=== PATIENT | female | born 1980 | race Caucasian/White ===

== ENCOUNTER → 2018-07-15 21:14 | Outpatient (CLI) | payer OTHER, SELFPAY ==
[2018-07-15 15:48] VITALS: BMI 23.6
[2018-07-15 22:00] LABS: Free T3 2.6 pg/mL (2.18-3.98); T4 Free Direct 1.07 ng/dL (0.76-1.46); Thyroid Stim Hormone (TSH) 1.95 uIU/mL (0.358-3.74)
== END ==
PROVIDERS: Family Provider Nurse Practitioner; PCP Nurse Practitioner; Referring Provider Nurse Practitioner; Visit Provider Nurse Practitioner
DX: E03.9 Hypothyroidism, unspecified (principal)
CPT/HCPCS: 84439; 84443; 84481

== ENCOUNTER → 2019-11-13 21:33 | Outpatient (CLI) | payer OTHER, SELFPAY ==
[2019-11-13 17:02] VITALS: BMI 23.1
[2019-11-13 22:05] LABS: ALB/GLOB Ratio 1.1 RATIO (0.9-2.4); AST(SGOT) 12 U/L (15-37); Alanine Aminotransfer ALT/SGPT 25 U/L (13-56); Albumin, Serum 4.2 g/dL (3.2-5.0); Alkaline Phosphatase 54 U/L (45-117); Anion Gap 8 (5-15); BUN 9 mg/dL (7-18); BUN/Creat Ratio 13.2 RATIO (10-20); Calcium,Total 9.3 mg/dL (8.5-10.1); Chloride 108 mmol/L (98-107); Creatinine, Serum 0.68 mg/dL (0.55-1.02); EST Glomerular Filtration Rate 102 mL/min (>60); Est Glom Filt Rate - Afr Amer 123 mL/min (>60); Globulin 3.7 g/dL (2.2-4.2); Glucose 86 mg/dL (74-106); Potassium 3.8 mmol/L (3.5-5.1); Protein, Total 7.9 g/dL (6.4-8.2); Sodium Level 140 mmol/L (136-145); Thyroid Stim Hormone (TSH) 2.26 uIU/mL (0.358-3.74)
== END ==
PROVIDERS: PCP Nurse Practitioner; Referring Provider Nurse Practitioner; Visit Provider Nurse Practitioner
DX: E03.9 Hypothyroidism, unspecified (principal)
CPT/HCPCS: 80053; 84443

== ENCOUNTER → 2020-10-01 22:55 | Outpatient (CLI) | payer OTHER, SELFPAY ==
[2020-10-01 17:00] VITALS: BMI 22.8
[2020-10-01 22:58] LABS: Lyme Ab Screen Interpretation REF LAB
[2020-10-01 23:20] LABS: Absolute Lymphocyte Count 1.88 X10^3/uL (0.83-4.51); Absolute Neutrophil Count 2.8 X10^3/uL (2.0-7.7); Basophil# 0.05 X10^3/uL; Eosinophil# 0.05 X10^3/uL; Hematocrit 40.7 % (37-47); Hemoglobin 13.1 g/dL (12.0-15.0); Lymphocyte # 1.88 X10^3/ul (0.83-4.51); Lymphocyte % 36.2 % (19-41); Mean Corp Hgb Conc 32.2 g/dL (32-36); Mean Corpuscular Volume 90.2 fL (81-99); Mean Platelet Vol. 12.9 fl (6.2-12.0); Monocyte# 0.38 X10^3/uL; Monocyte% 7.3 % (0-10); NRBC Flagged by Analyzer 0 % (0-5); Neutrophil # 2.82 X10^3/uL (2.7-7.7); Neutrophil % 54.3 % (47-70); Platelet Count 272 K/mm3 (150-450); RBC Distribution Width CV 12.5 % (11.6-14.6); RBC Distribution Width SD 41.1 fl (35.1-43.9); Red Blood Count 4.51 M/mm3 (4.2-5.4); White Blood Count 5.2 K/mm3 (4.4-11.0)
[2020-10-01 23:31] LABS: T4 Free Direct 0.98 ng/dL (0.76-1.46); Thyroid Stim Hormone (TSH) 1.91 uIU/mL (0.358-3.74)
[2020-10-04 09:06] LABS: EBV Acute VCA IgM < 36.0 U/mL (0.0-35.9); EBV-VCA IgG > 600.0 U/mL (0.0-17.9); Lyme Scn Total Ab w/Rflx <0.91 ISR (0.00-0.90); Thyroid Peroxidase AB < 9 IU/mL (0-34)
== END ==
PROVIDERS: Visit Provider Nurse Practitioner
DX: E03.9 Hypothyroidism, unspecified (principal); R53.83 Other fatigue; W57.XXXA Bitten or stung by nonvenomous insect and other nonvenomous arthropods, initial encounter
CPT/HCPCS: 84439; 84443; 85025; 86376; 86618; 86664; 86665

== ENCOUNTER → 2021-09-24 | Outpatient (CLI) | payer OTHER, SELFPAY ==
[2021-09-24 21:26] LABS: Absolute Neutrophil Count 3.4 X10^3/uL (2.0-7.7); Basophil# 0.04 X10^3/uL; Basophil% 0.7 % (0-1); Eosinophil# 0.02 X10^3/uL; Eosinophils% 0.3 % (0-5); Hematocrit 38.1 % (37-47); Hemoglobin 12.7 g/dL (12.0-15.0); Lymphocyte % 35.9 % (19-41); Mean Corp Hgb Conc 33.3 g/dL (32-36); Mean Corpuscular Hgb 30.1 pg (27.0-32.0); Mean Corpuscular Volume 90.3 fL (81-99); Mean Platelet Vol. 12.3 fl (6.2-12.0); Monocyte# 0.42 X10^3/uL; Monocyte% 6.9 % (0-10); NRBC Flagged by Analyzer 0 % (0-5); Neutrophil # 3.44 X10^3/uL (2.7-7.7); Platelet Count 275 K/mm3 (150-450); RBC Distribution Width CV 12.4 % (11.6-14.6); Red Blood Count 4.22 M/mm3 (4.2-5.4); White Blood Count 6.1 K/mm3 (4.4-11.0)
[2021-09-24 21:51] LABS: ALB/GLOB Ratio 1.1 RATIO (0.9-2.4); AST(SGOT) 16 U/L (15-37); Alanine Aminotransfer ALT/SGPT 27 U/L (13-56); Albumin, Serum 3.7 g/dL (3.2-5.0); Alkaline Phosphatase 45 U/L (45-117); Anion Gap 5 (5-15); BUN 13 mg/dL (7-18); BUN/Creat Ratio 17.7 RATIO (10-20); Calcium,Total 8.7 mg/dL (8.5-10.1); Chloride 107 mmol/L (98-107); Cholesterol 174 mg/dL (200); Creatinine, Serum 0.74 mg/dL (0.55-1.02); EST Glomerular Filtration Rate 93 mL/min (>60); Est Glom Filt Rate - Afr Amer 112 mL/min (>60); Globulin 3.4 g/dL (2.2-4.2); Glucose 97 mg/dL (74-106); High Density Lipoprotein 89 mg/dL; Potassium 3.4 mmol/L (3.5-5.1); Protein, Total 7.1 g/dL (6.4-8.2); Sodium Level 139 mmol/L (136-145); Thyroid Stim Hormone (TSH) 1.59 uIU/mL (0.358-3.74); Triglycerides 63 mg/dL; Very Low Density Lipoprotein 13 mg/dL (5-40)
[2021-09-29 15:41] LABS: HPV Reflexed? NOT INDICATED
== END | disposition home or self-care (01) ==
PROVIDERS: Referring Provider Nurse Practitioner; Visit Provider Nurse Practitioner
DX: Z01.419 Encounter for gynecological examination (general) (routine) without abnormal findings (principal)
CPT/HCPCS: 80053; 80061; 84443; 85025; 88175; G0145

== ENCOUNTER → 2021-12-24 | Outpatient (CLI) | payer OTHER, SELFPAY ==
[2021-12-24 21:20] LABS: Lyme Ab Screen Interpretation REF LAB
[2021-12-24 21:45] LABS: Thyroid Stim Hormone (TSH) 1.29 uIU/mL (0.358-3.74)
[2021-12-26 16:09] LABS: Anti-Centromere B Ab <0.2 AI (0.0-0.9); Anti-Chromatin <0.2 AI (0.0-0.9); Anti-Jo <0.2 AI (0.0-0.9); Anti-Scleroderma-70 AB 0.2 AI (0.0-0.9); RNP Ab 0.3 AI (0.0-0.9); SJOGREN'S Anti-SS-A test < 0.2 AI (0.0-0.9); SJOGREN'S Anti-SS-B test < 0.2 AI (0.0-0.9); Smith Ab 0.2 AI (0.0-0.9)
[2021-12-26 20:42] LABS: Anti-dsDNA Ab 4 IU/mL (0-9)
== END | disposition home or self-care (01) ==
PROVIDERS: Visit Provider Nurse Practitioner
DX: R21 Rash and other nonspecific skin eruption (principal); M25.50 Pain in unspecified joint; L21.0 Seborrhea capitis
CPT/HCPCS: 84443; 86225; 86235; 86618; 86664; 86665; 87496

== ENCOUNTER → 2023-01-18 | Outpatient (CLI) | payer BC, SELFPAY ==
[2023-01-18 21:39] LABS: Thyroid Stim Hormone (TSH) 0.63 uIU/mL (0.358-3.74)
== END | disposition home or self-care (01) ==
PROVIDERS: Visit Provider Nurse Practitioner
DX: E03.9 Hypothyroidism, unspecified (principal)
CPT/HCPCS: 84443

== ENCOUNTER → 2023-01-21 | Outpatient (CLI) | payer BC, SELFPAY ==
[2023-01-26 22:11] LABS: HPV Reflexed? NOT INDICATED
== END | disposition home or self-care (01) ==
PROVIDERS: Visit Provider Nurse Practitioner
DX: Z01.419 Encounter for gynecological examination (general) (routine) without abnormal findings (principal); H66.92 Otitis media, unspecified, left ear
CPT/HCPCS: 88175; G0145

== ENCOUNTER → 2024-02-18 | Outpatient (CLI) | payer BC, SELFPAY | END | disposition home or self-care (01) | LOC: LABSPEC 19:41 | PROVIDERS: PCP Nurse Practitioner; Visit Provider Nurse Practitioner | DX: E03.9 Hypothyroidism, unspecified (principal) | CPT/HCPCS: 84443 ==

== ENCOUNTER → 2024-02-19 | Outpatient (CLI) | payer BC, SELFPAY | END | disposition home or self-care (01) | LOC: LABSPEC 07:17 | PROVIDERS: PCP Nurse Practitioner; Referring Provider Nurse Practitioner; Visit Provider Nurse Practitioner | DX: E03.9 Hypothyroidism, unspecified (principal) ==

== ENCOUNTER → 2025-04-02 | Outpatient (CLI) | payer BC, SELFPAY ==
--- OUTSIDE RECORDS SUMMARY | 2025-04-02 22:02 | XMS RPT_ITS | CCD ---
Author Organization [facility] Care Team Providers Care Tilt Tray Driver Name Role Phone JING HENDERSON Unavailable UnaALEX Trinidad Unavailable Unavailable NO PRIMARY CARE, Unavailable Unavailable Kishor BENSON, Mohinder Soriano Primary Care Provider Justin BENSON, Yaquelin Jacobo Primary Care Provider [phone] Rafael DE IONIZER OPERATOR, Cecy Attending Unavailable Rafael DE IONIZER OPERATOR, Cecy Primary Care Unavailable Rafael DE IONIZER OPERATOR, Cecy Attending Unavailable Rafael DE IONIZER OPERATOR, Cecy Referring Unavailable Rafael DE IONIZER OPERATOR, Cecy Primary Care Unavailable MOHINDER IVERSON Primary Care Unavailable Allergies Allergy Classification Reported Allergen(s) Allergy Type Date of Onset Reaction(s) Facility (4 sources) Acetaminophen / HYDROcodone Drug Allergy 3 Other (See Comments), Other: See Comments [facility] (1 source) Ciprofloxacin Drug Allergy 7 Other (See Comments) [facility] Work Phone: (1 source) Fluconazole Drug Allergy 9 [facility] Work Phone: (1 source) levoFLOXacin Drug Allergy 6 Other (See Comments) [facility] Work Phone: (7 sources) telithromycin Drug Allergy 3 Hives [facility] (4 sources) Amoxicillin-Pot Clavulanate Propensity to adverse reactions to drug 6 Anaphylaxis, Other: See Comments [facility] (3 sources) Clindamycin Drug Allergy 3 GI Upset [facility] (3 sources) NITROFURANTOIN, MACROCRYSTALS / Nitrofurantoin, Monohydrate Drug Allergy 7 GI Upset [facility] (3 sources) Acetaminophen Drug Allergy 8 [facility] (3 sources) Amoxicillin Drug Allergy 8 throat closes [facility] (3 sources) Clavulanate Drug Allergy 8 throat closes [facility] (3 sources) HYDROcodone Drug Allergy 8 u [facility] (1 source) Acetaminophen Drug Allergy 8 [facility] (1 source) Amoxicillin Drug Allergy 8 [facility] (1 source) Clavulanate Drug Allergy 8 [facility] (1 source) HYDROcodone Drug Allergy 8 [facility] (1 source) telithromycin Drug Allergy 8 [facility] Medications Current Medications Medication Drug Class(es) Dates Sig (Normalized) Sig (Original) acetaminophen 325 mg oral tablet (1 source) acetaminophen (TYLENOL) 325 MG tablet Take 650 mg by mouth as needed for Pain 0 Active [id number] 200 actuat albuterol 0.09 mg/actuat metered dose inhaler (3 sources) beta2-Adrenergic Agonist Start: 12-19-2020 take 1 puff(s) by inhalation every four hours Albuterol Sulfate (Ventolin Hfa) 90 mcg/actuation HFA aerosol inhaler Active 2 PUFF INHALATION Q4H 6.7 December 19, 2020 12:00am calcipotriene (2 sources) Vitamin D Analog Start: 01-21-2023 Calcipotriene Active 1 APPLIC TOPICAL DAILY 60 56 January 21, 2023 12:00am rub in gently and completely cetirizine hydrochloride 10 mg oral tablet (6 sources) Histamine-1 Receptor Antagonist Start: 11-13-2019 take 1 tablet by mouth once daily Cetirizine (Zyrtec) 10 mg tablet Active 10 MG PO DAILY November 13, 2019 12:00am take 5 mg by mouth once daily Ce tirizine (ZYRTEC) 10 mg cap Take 5 mg by mouth once daily. 0 Active Comment on above: Take 5 mg by mouth o nce daily. cholecalciferol 0.025 mg oral capsule (7 sources) Vitamin D Start: 8 take 1000 [IU] by mouth once daily Cholecalciferol (Vitamin D3) Active 1000 UNIT PO DAILY December 09, 2017 12:00am take 1 tablet by mouth once sena y Cholecalciferol, Vitamin D3, (VITAMIN D) 1,000 unit Tab Take 1,000 Units by mouth once daily. 0 Active Comment on above: Take 1,000 Units by mouth once daily. [id number] 0.3 ml EPINEPHrine 1 mg/ml auto-injector (1 source) alpha-Adrenergic Agonist, beta-Adrenergic Agonist, Catecholamine Start: 12-08-19 19 EPINEPHrine (EPIPEN) 0.3 MG/0.3ML SOAJ injection Use as directed for allergic reaction 2 each 4 12/07/2018 Active Multiple Vitamin (MULTI-DAY VITAMINS PO) (1 source) take 1 tablet by mouth once daily Multiple Vitamin (MULTI-DAY VITAMINS PO) Take 1 tablet by mouth daily 0 Active Multivitamin (Multiple Vitamins) tablet (3 sources) Start: 04-27-19 20 take 1 tablet by mouth once daily Multivitamin (Multiple Vitamins) tablet Active 1 TABLET PO DAILY 2019 1:00am omega-3 acid ethyl esters (care home) 1000 mg oral capsule (1 source) [place] 3 1000 MG CAPS Indications: when she remembers Take by mouth Indications: when she remembers 0 Active omeprazole 20 mg delayed release oral capsule (1 source) Proton Pump Inhibitor Start: 12-08-19 19 take 1 capsule by mouth once daily omeprazole (PRILOSEC) 20 MG delayed release capsule Take 1 capsule by mouth Daily 90 capsule 4 12/07/2018 Active sucralfate 1000 mg oral tablet (15 sources) Aluminum Complex Start: 04-17-19 22 take 1 tablet by mouth once daily Sucralfate (Carafate) 1 gram tablet Active 1 GM PO daily April 17, 2021 9:29pm Start: 11-13-2019 End: 04-17-2021 take 1 tablet by mouth twice daily Sucralfate (Carafate) 1 gram tablet Discontinued 1 GM PO TWICE A DAY November 13, 2019 12:00am April 17, 2021 9:32pm Start: 12-09-2017 End: 10-15-2018 take 1 tablet by mouth once Sucralfate (Carafate) 1 gr am tablet Discontinued 1 GM PO ONCE April 28, 2018 8:32pm October 15, 2018 12:18pm take 1 tablet by caden four times daily sucralfate (CARAFATE) 1 gram tablet Take 1 g by mouth four times daily. 0 Active Comment on above: Take 1 g by mouth fo ur times daily. Completed/Discontinued Medications Medication Drug Class(es) Dates Sig (Normalized) Sig (Original) azithromycin 250 mg oral tablet (16 sources) Macrolide Antimicrobial Start: 07-21-2022 End: 07-26-2022 Azithromycin Discontinued 250 MG PO daily 6 July 21, 2022 4:57pm July 26, 2022 12:04am 2 po qd for 1 day then 1 po qd for 4 days with food or after eating Start: 03-04-2022 End: 03-09-2022 Azithromycin Discontinued 25 0 MG PO daily 6 March 04, 2022 1:00am March 09, 2022 1:03am 2 po qd for 1 day then 1 po qd for 4 days with food or after eating Start: 08-27-2021 End: 09-01-2021 Azithromycin Discontinued 25 0 MG PO daily 6 August 27, 2021 4:06pm September 01, 2021 12:03am 2 po qd for 1 day then 1 po qd for 4 days with food or after eating Start: 04-17-2021 End: 04-22-2021 Azithromycin Discontinued 25 0 MG PO daily 6 April 17, 2021 1:00am April 22, 2021 1:01am 2 po qd for 1 day then 1 po qd for 4 days with food or after eating Start: 05-01-2019 End: 05-06-2019 Azithromycin Discontinued 25 0 MG PO daily 6 May 01, 2019 1:00am May 06, 2019 1:09am 2 po qd for 1 day then 1 po qd for 4 days with food or after eating Start: 03-10-2019 End: 03-15-2019 Azithromycin Discontinued 25 0 MG PO daily 6 March 10, 2019 1:00am March 15, 2019 1:07am 2 po qd for 1 day then 1 po qd for 4 days with food or after eating cefdinir 300 mg oral capsule (3 sources) Cephalosporin Antibacterial Start: 12-19-2020 End: 04-17-2021 take 300 mg by mouth twice daily Cefdinir Discontinued 300 MG PO TWICE A DAY December 19, 2020 12:00am April 17, 2021 9:25pm cefuroxime 500 mg oral tablet (11 sources) Cephalosporin Antibacterial Start: 09-11-2022 End: 01-22-2023 take 500 mg by mouth twice daily Cefuroxime Axetil Discontinued 500 MG PO TWICE A DAY September 11, 2022 4:51pm January 22, 2023 12:32pm Start: 09-09-2020 End: 10-01-2020 take 500 mg by mouth twice daily Cefuroxime Axetil Discontinued 500 MG PO TWICE A DAY September 09, 2020 4:35pm October 01, 2020 5:01pm Start: 01-31-2019 End: 2019 take 500 mg by mouth twice daily Cefuroxime Axetil Discontinued 500 MG PO TWICE A DAY March 27, 2019 7:10pm 2019 4:34pm cephalexin 500 mg oral capsule (10 sources) Cephalosporin Antibacterial Start: 12-09-2018 End: 12-19-2018 take 500 mg by mouth twice daily Cephalexin Discontinued 500 MG PO TWICE A DAY 22 01December 09, 2018 12:00am December 19, 2018 12:08am Start: 10-15-2018 cephALEXin (KE FLEX) 500 MG capsule Indications: Once a day PRN Indications: Once a day PRN 0 10/15/2018 Active Start: 07-15-2018 End: 07-25-2018 take 500 mg by mouth twice daily Cephalexin Discontinued 500 MG PO TWICE A DAY 22 01July 15, 2018 12:00am July 25, 2018 12:09am Start: 04-07-2018 End: 04-17-2018 take 500 mg by mouth twice daily Cephalexin Discontinued 500 MG PO TWICE A DAY 22 01April 07, 2018 1:00am April 17, 2018 1:08am clarithromycin 500 mg oral tablet (3 sources) Macrolide Antimicrobial Start: 2019 End: 11-13-2019 take 500 mg by mouth twice daily Clarithromycin Discontinued 500 MG PO TWICE A DAY 2019 1:00am November 13, 2019 5:03pm codeine phosphate 2 mg/ml / guaiFENesin 20 mg/ml oral solution (2 sources) Opioid Agonist Start: 03-04-2022 End: 01-22-2023 take 1 mL by mouth once Codeine-Guaifenesin Discontinued 5 ML PO ONCE March 04, 2022 1:00am January 22, 2023 12:33pm doxycycline hyclate 100 mg oral tablet (5 sources) Tetracycline-class Drug Start: 12-29-2021 End: 03-04-2022 take 100 mg by mouth twice daily Doxycycline Hyclate Discontinued 100 MG PO TWICE A DAY 60 December 29, 2021 12:00am March 04, 2022 7:35pm Start: 10-01-2020 End: 04-17-2021 take 100 mg by mouth twice daily Doxycycline Hyclate Discontinued 100 MG PO TWICE A DAY 42 October 01, 2020 12:00am April 17, 2021 9:26pm fluconazole 150 mg oral tablet (3 sources) Azole Antifungal Start: 04-07-2018 End: 04-08-2018 Fluconazole Discontinued 150 MG PO Q3D 2 0 April 07, 2018 1:00am April 08, 2018 1:09am august repeat second dose 72 hrs after first dose if symptoms persist ibuprofen 600 mg oral tablet (6 sources) Nonsteroidal Anti-inflammatory Drug Start: 06-19-2016 take 1 tablet by mouth every six hours as needed ibuprofen (MOTRIN) 600 mg tablet Take 1 tablet by mouth every 6 hours as needed. 60 tablet 0 06/19/2016 Active Ibuprofen (MOTRI N IB) 200 mg cap Take by mouth. 0 Active Comment on above: Take 1 tablet by caden th every 6 hours as needed. Take by mouth. levothyroxine sodium 0.088 mg oral tablet (20 sources) l-Thyroxine Start: End: 3 take 1 tablet by mouth once daily Levothyroxine (Synthroid) 88 mcg tablet Discontinued 88 MCG PO DAILY January 02, 2022 12:28pm January 19, 2023 11:18am take 1 tablet by caden th once daily before breakfast levothyroxine (SYNTHROID) 75 mcg tablet Take 75 mcg by mouth daily before breakfast. 0 Active Comment on above: Take 75 mcg by mouth daily before breakfast. ofloxacin 3 mg/ml otic solution (12 sources) Quinolone Antimicrobial Start: 10-31-2020 End: 01-22-2023 Ofloxacin Discontinued 10 DRP OTIC TWICE A DAY August 27, 2021 4:05pm January 22, 2023 12:33pm Start: 01-31-2019 End: 03-31-2019 Ofloxacin Discontinued 0 OPH THALMIC .COMPLEX January 31, 2019 12:00am March 31, 2019 1:00pm put 1-2 drps into affected eye(s) every 2-4 h x 2 days, then 1-2 drps 4 times/day days 3-7 ophthalmic (eye) Start: 10-15-2018 End: 03-31-[address] P OTIC TWICE A DAY October 15, 2018 12:00am March 31, 2019 1:00pm PNV COMBO#47/IRON/FA #1/DHA (PNV-DHA ORAL) (3 sources) PNV COMBO#47/IRO N/FA #1/DHA (PNV-DHA ORAL) Take by mouth. 0 Active Comment on above: Take by mouth. predniSONE 10 mg oral tablet (14 sources) Start: 12-19-2021 End: 12-23-2021 Prednisone Discontinued 20 MG PO TWICE A DAY 30 December 19, 2021 12:00am December 23, 2021 12:03am 2 po bid 4D,1 po bid for 4 D, 1 po qd for 4 D 1/2 po qd for 2 days Start: 10-01-2020 End: 04-17-2021 take 40 mg by mouth once daily Prednisone Discontinued 40 MG PO DAILY December 19, 2020 12:00am April 17, 2021 9:26pm Start: 12-09-2018 End: 12-19-2018 take 40 mg by mouth once daily Prednisone Discontinued 40 MG PO DAILY 20 December 09, 2018 12:00am December 19, 2018 12:08am Start: 10-15-2018 End: 10-22-2018 take 20 mg by mouth twice daily Prednisone Discontinued 20 MG PO TWICE A DAY 28 October 15, 2018 12:00am October 22, 2018 12:08am Prenat.Vits,Elmer,Yse-Phol-Vom ic ( Vitamin) tablet (3 sources) Start: 12-09-2017 End: 10-15-2018 take 1 tablet by mouth once daily Prenat.Vits,Elmer,Juk-Reai-Iyhct ( Vitamin) tablet Discontinued 1 TABLET PO DAILY December 09, 2017 12:00am October 15, 2018 12:19pm Problems Active Problems Problem Classification Problem Date Documented Date Episodic/Chronic Anxiety disorders (1 source) Anxiety 09-16-2015 Chronic Asthma (1 source) Asthma 11-11-2016 Chronic Chronic obstructive pulmonary disease and bronchiectasis (5 sources) Bronchitis; Translations: [Bronchitis, not specified as acute or chronic] 2019 Episodic Disorders of teeth and jaw (3 sources) Jaw pain; Translations: [Jaw pain] 06-10-2021 Episodic Esophageal disorders (4 sources) Gastroesophageal reflux disease without esophagitis; Translations: [Gastroesophageal reflux disease] Onset: 11-11-2016 11-11-2016 Chronic Genitourinary symptoms and ill-defined conditions (3 sources) Urgent desire to urinate; Translations: [Urgency of urination] 04-07-2018 Episodic Inflammation; infection of eye (except that caused by tuberculosis or sexually transmitteddisease) (3 sources) Eye infection; Translations: [Unspecified purulent endophthalmitis, unspecified eye] 01-31-2019 Chronic Malaise and fatigue (3 sources) Fatigue; Translations: [Other fatigue] 07-15-2018 Episodic Mycoses (3 sources) Mycosis; Translations: [Candidiasis, unspecified] 04-07-2018 Episodic Nonmalignant breast conditions (3 sources) Breast lump; Translations: [Unspecified lump in the right breast, unspecified quadrant] 09-17-2021 Episodic Nutritional deficiencies (1 source) Vitamin D deficiency Onset: 11-11-2016 11-11-2016 Chronic Other complications of (3 sources) Complication of , childbirth and/or the puerperium; Translations: [Other diseases of the blood and blood-forming organs and certain disorders involving the immune mechanism complicating , unspecified trimester] 09-25-2021 Episodic Other ear and sense organ disorders (3 sources) Decreased hearing ; Translations: [Unspecified hearing loss, unspecified ear] 12-09-2017 Chronic Other ear and sense organ disorders (6 sources) Otitis externa; Translations: [Unspecified otitis externa, unspecified ear] 10-15-2018 Chronic Other ear and sense organ disorders (3 sources) Impacted cerumen; Translations: [Impacted cerumen, unspecified ear] 12-09-2017 Episodic Other ear and sense organ disorders (1 source) Otalgia; Translations: [Otalgia, unspecified ear] Episodic Other ear and sense organ disorders (6 sources) Swelling of ear structure; Translations: [Other specified disorders of left ear] 10-15-2018 Episodic Other ear and sense organ disorders (2 sources) Pain of ear structure; Translations: [Otalgia, unspecified ear] 04-24-2021 Episodic Other inflammatory condition of skin (2 sources) Pityriasis; Translations: [Seborrhea capitis] 12-19-2021 Episodic Other inflammatory condition of skin (2 sources) Pruritus of skin; Translations: [Pruritus, unspecified] 12-19-2021 Episodic Other non-traumatic joint disorders (2 sources) Joint pain; Translations: [Pain in unspecified joint] 12-24-2021 Episodic Other screening for suspected conditions (not mental disorders or infectious disease) (3 sources) Patient encounter status; Translations: [Encounter for screening mammogram for malignant neoplasm of breast] 09-15-2021 Episodic Other skin disorders (2 sources) Eruption; Translations: [Rash and other nonspecific skin eruption] 12-24-2021 Episodic Other upper respiratory disease (1 source) Allergic rhinitis due to pollen Onset: 11-11-2016 11-11-2016 Chronic Other upper respiratory infections (6 sources) Ethmoidal sinusitis; Translations: [Chronic ethmoidal sinusitis] 07-15-2018 Chronic Other upper respiratory infections (3 sources) Pharyngitis; Translations: [Acute pharyngitis, unspecified] 04-28-2018 Episodic Otitis media and related conditions (9 sources) Acute left otitis media; Translations: [Otitis media, unspecified, left ear] 07-15-2018 Episodic Skin and subcutaneous tissue infections (3 sources) Cellulitis; Translations: [Cellulitis, unspecified] 12-09-2018 Episodic Thyroid disorders (6 sources) Acquired hypothyroidism; Translations: [Hypothyroidism] Onset: 11-11-2016 Resolved: 11-11-2016 11-11-2016 Chronic Unclassified (1 source) Patient encounter status Past or Other Problems Problem Classification Problem Date Documented Da te Episodic/Chronic Immunizations and screening for infectious disease (1 source) Anti-nuclear factor positive 11-11-2016 Episodic Spontaneous (1 source) Miscarriage Onset: 02-04-2015 Resolved: 11-11-2016 11-11-2016 Episodic Unclassified (2 sources) HSG dye through fallopian tubes 11-03-2021 Results Test Name Value Interpretation Reference Range Facility Thyroid Stim Hormone (TSH)on 02-18-2024 TSH 1.410 uIU/mL Normal 0.358-3.740 [facility] Comment on above: Performed By: #### L [id number] #### [facility] [address] [place], [place], [id number] No Panel InformationOrdered By: Cecy Hall on 01-18-2023 Thyroid Stimulating Hormone (TSH) 0.63 uIU/mL 0.358-3.74 [facility] Absolute lymphocyte counton 09-24-2021 Lymphocytes Auto (Unsp spec) [#/Vol] 2.20 10*3/uL 0.83-4.51 [facility] Work Phone: Basophil percentageon 2021 Basophils/100 WBC (Bld) 0.7 % 0-1 [facility] Work Phone: Bilirubin [Mass/Vol] 0.50 mg/dL 0.20-1.00 [facility] Work Phone: Comment on above: For patients on eltr ombopag therapy, use of Dimension [place] TBIL is not recommended. Chloride [Moles/Vol] 107 mmol/L 98-107 [facility] Work Phone: Cholesterol [Mass/Vol] 174 mg/dL <200 [facility] Work Phone: Comment on above: <200 mg/dL Desirable 200-240 mg/dL Borderline >240 mg/dL High Risk Eosinophils/100 WBC (Bld) 0.3 % 0-5 [facility] Work Phone: Glucose [Mass/Vol] 97 mg/dL 74-106 [facility] Work Phone: Neutrophils (Bld) [#/Vol] 3.4 10*3/uL 2.0-7.7 [facility] Work Phone: Neutrophils/100 WBC (Bld) 56.0 % 47-70 [facility] Work Phone: Potassium [Moles/Vol] 3.4 mmol/L 3.5-5.1 [facility] Work Phone: Protein [Mass/Vol] 7.1 g/dL 6.4-8.2 [facility] Work Phone: [phone] Sodium [Moles/Vol] 139 mmol/L 136-145 [facility] Work Phone: [phone] Triglyceride [Mass/Vol] 63 mg/dL <199 [facility] Work Phone: [phone] Comment on above: The drugs N-Acetylcy steine and Metamizole may falsely depress this assay.Serum Triglycerides Reference Interval Normal <150 mg/dL Borderline high 150 - 199 mg/dL High 200 - 499 mg/dL Very High > or = 500 mg/dL WBC (Bld) [#/Vol] 6.1 10*3/uL 4.4-11.0 [facility] Work Phone: [phone] Blood erythrocytes count (nu mber/volume)on 09-24-2021 RBC (Bld) [#/Vol] 4.22 10*6/uL 4.2-5.[address] [facility] Work Phone: [phone] Blood hemoglobin measurement (mass/volume)on 09-24-2021 Hemoglobin (Bld) [Mass/Vol] 12.7 g/dL 12.0-15.0 [facility] Work Phone: [phone] Blood lymphocytes/100 leukoc yteson 09-24-2021 Lymphocytes/100 WBC (Bld) 35.9 % 19-41 [facility] Work Phone: [phone] Blood monocytes/100 leukocyt eson 09-24-2021 Monocytes/100 WBC (Bld) 6.9 % 0-10 [facility] Work Phone: [phone] Blood platelet mean volumeon 09-24-2021 Platelet mean volume (Bld) [Entitic vol] 12.3 fL 6.2-12.0 [facility] Work Phone: [phone] Determination of erythrocyte mean corpuscular volume (MCV)on 09-24-2021 MCV (RBC) [Entitic vol] 90.3 fL 81-99 [facility] Work Phone: [phone] Hematocrit Auto (Bld) [Volum e fraction]on 09-24-2021 Hematocrit (Bld) [Volume fraction] 38.1 % 37-47 [facility] Work Phone: [phone] Laboratory - Chemistry and C hemistry - challengeon 09-24-2021 ALP [Catalytic activity/Vol] 45 U/L 45-117 [facility] Work Phone: [phone] ALT [Catalytic activity/Vol] 27 U/L 13-56 [facility] Work Phone: [phone] CO2 [Moles/Vol] 27.0 mmol/L 21.0-32.0 [facility] Work Phone: [phone] Globulin (S) [Mass/Vol] 3.4 g/dL 2.2-4.2 [facility] Work Phone: [phone] Urea nitrogen/Creatinine [Mass ratio] 17.7 mg/mg 10-20 [facility] Work Phone: [phone] Laboratory - Hematology and Cell countson 09-24-2021 Erythrocyte distribution width (RBC) [Entitic vol] 41.0 fL 35.1-43.9 [facility] Work Phone: [phone] Erythrocyte distribution width (RBC) [Ratio] 12.4 % 11.6-14.6 [facility] Work Phone: [phone] Immature granulocytes/100 WBC (Bld) 0.200 % 0.0-0.9 [facility] Work Phone: [phone] Comment on above: IG% - Immature Granu locytes (promyelocytes, myelocytes and metamyelocytes) > 1% indicates that a LEFT SHIFT is Present. MCH (RBC) [Entitic mass] 30.1 pg 27.0-32.0 [facility] Work Phone: [phone] Nucleated RBC/100 WBC (Bld) [Ratio] 0 % 0-5 [facility] Work Phone: [phone] MCHC Auto (RBC) [Mass/Vol]on 09-24-2021 MCHC (RBC) [Mass/Vol] 33.3 g/dL 32-36 [facility]: [phone] No Panel Informationon 09-24 Estimated GFR (MDRD) Amer 112 mL/min >60 [facility] Work Phone: Comment on above: GFR Calc Estimated GFR (MDRD) Non-Af Amer 93 mL/min >60 [facility] Work Phone: Comment on above: Non- GFR Calc Thyroid Stimulating Hormone (TSH) 1.59 uIU/mL 0.358-3.74 [facility] Work Phone: Platelets bldon 09-24-2021 Platelets (Bld) [#/Vol] 275 10*3/uL 150-450 [facility] Work Phone: Serum or plasma albumin erasmo urement (mass/volume)on 09-24-2021 Albumin [Mass/Vol] 3.7 g/dL 3.2-5.0 [facility] Work Phone: Serum or plasma albumin/glob ulin mass ratioon 09-24-2021 Albumin/Globulin [Mass ratio] 1.1 {ratio} 0.9-2.4 [facility] Work Phone: Serum or plasma calcium erasmo urement (mass/volume)on 09-24-2021 Calcium [Mass/Vol] 8.7 mg/dL 8.5-10.1 [facility] Work Phone: Serum or plasma cholesterol in HDL measurement (mass/volume)on 09-24-2021 Cholesterol in HDL [Mass/Vol] 89 mg/dL >40 [facility] Work Phone: Comment on above: The drugs N-Acetylcy steine and Metamizole may falsely depress this assay. Reference Range HDL <40 mg/dL Low HDL Cholesterol HDL >or= 60 mg/dL High HDL Cholesterol Serum or plasma cholesterol in VLDL measurement (mass/volume)on 09-24-2021 Cholesterol in VLDL [Mass/Vol] 13 mg/dL 5-40 [facility] Work Phone: Serum or plasma creatinine m easurement (mass/volume)on 09-24-2021 Creatinine [Mass/Vol] 0.74 mg/dL 0.55-1.02 [facility] Work Phone: Comment on above: The validity of the calculated GFR & GFRAA in patients over 70 years has not been determined. Clinical correlation is essential. Serum or plasma low density lipoprotein (LDL) cholesterol measurement (mass/volume)on 09-24-2021 Cholesterol in LDL [Mass/Vol] 72 mg/dL 0-130 [facility] Work Phone: Serum or plasma urea nitroge n measurement (mass/volume)on 09-24-2021 Urea nitrogen [Mass/Vol] 13 mg/dL 7-18 [facility] Work Phone: Thin prep Papanicolaou smear with manual screeningon 09-24-2021 Thin prep Papanicolaou smear with manual screening 16 U/L 15-37 [facility] Work Phone: Thin prep Papanicolaou smear with manual screening 5 5-15 [facility] Work Phone: [facility] 09-22-2021 [facility] HNO ID: [id number] Author: Mammography Coordinator Service: ? Author Type: Physician Type: Letter Filed: 09/23/2021 11:31 PM Note Text: [address] [address] September 22, 2021 PID: [id number] Inessa Hurd [address] [place] [address] Dear Ms. Hurd, Your prior imaging studies have arrived and been compared to your current study. We are pleased to inform you that the results of your recent breast imaging exam on 09/17/2021 are normal. Early detection of cancer is very important. We also understand recommendations regarding breast cancer screening are controversial. Please discuss with your primary care provider which strategy is best for you and whether a mammogram is right for you. Your imaging studies and report will be kept on file at [facility] as part of your permanent medical record and are available for your continuing care. Thank you for allowing us to help in meeting your health care needs. Sincerely, Dr. Mckenzie Interpreting Radiologist [facility] (Normal [place] compared) Normal [facility] 09-17-2021 [facility] HNO ID: [id number] Author: Mammography Coordinator Service: ? Author Type: Physician Type: Letter Filed: 09/18/2021 11:33 PM Note Text: [facility] [address] [place] [address] September 17, 2021 PID: [id number] Inessa Hurd [address] [place] [id number] Dear Ms. Hurd, Your breast imaging exam 09/17/2021 showed a possible finding that may require additional imaging studies for a complete evaluation. However, we recognize you have prior imaging studies at facilities other than [facility], and would like the opportunity to compare your recent imaging with those studies to evaluate for any change. At this time, we have requested your prior studies. If/when your prior studies arrive, a final report will be sent to your healthcare provider and/or you. In addition, you will receive a new result letter and or phone call If you need additional imaging. If we do not receive prior studies within 30 days of your exam, you will receive a reminder letter and or phone call to schedule your diagnostic imaging. Your imaging studies and reports are kept on file at [facility] as part of your permanent medical record, and are available for your continuing care. If you have any questions or concerns, please call [phone]. Thank you for choosing [facility] for your imaging needs. Sincerely, Dr. Mckenzie Interpreting Radiologist [facility] ([employer]) Normal [facility] SCREENINGon 09-17-2021 [facility] SCREENING * * *Final Report* * * * * * SEE BOTTOM OF REPORT FOR ADDENDED TEXT * * * DATE OF EXAM: Sep 17 2021 11:08AM [facility] [id number] - [facility] SCREENING / PROCEDURE REASON: screening * * * * Physician Interpretation * * * * THIS REPORT HAS BEEN AMENDED. #[id number] - [facility] SCREENING BILATERAL DIGITAL SCREENING MAMMOGRAM WITH CAD: 09/17/2021 HISTORY: / Screening Mammogram-Patient reports NO symptoms. RESULT: TECHNIQUE: The study was acquired using full field digital technology and interpreted from soft copy. Current study was also evaluated with a Computer Aided Detection (CAD). No prior exams were available for comparison. The tissue of both breasts is heterogeneously dense. This may lower the sensitivity of mammography. There is a possible asymmetry in the right breast posterior depth upper region seen on the mediolateral oblique view only. There also is a possible asymmetry in the right breast middle depth outer region seen on the craniocaudal view only. No other significant masses, calcifications, or other findings are seen in either breast. IMPRESSION: INCOMPLETE: NEEDS ADDITIONAL IMAGING EVALUATION The possible asymmetry in the right breast posterior depth upper region seen on the mediolateral oblique view only is indeterminate. Additional views and a comparison to prior exams are recommended. The possible asymmetry in the right breast middle depth outer region seen on the craniocaudal view only is indeterminate. Additional views and a comparison to prior exams are recommended. SUMMARY: If the patient's prior breast imaging studies are obtained for comparison, an addendum will be made to the above report with updated BIRADS. Lucho loredo/ashley:09/17/2021 11:17:42 [employer] Contemporary Art Curator(s): Sharlene Schaefer (Amador)(M), [facility] letter sent: Comparison Films Needed Mammogram BI-RADS: 0 Incomplete: needs additional imaging evaluation If this report indicates you need additional imaging, and it has NOT yet been performed, please call , to schedule. We sincerely thank you for choosing the [facility] for your breast imaging needs. Multiple national specialty organizations have released breast cancer screening guidelines for women at average risk for developing breast cancer - guidelines that are based on both evidence and opinion, yet differ on when to start and how often to screen for breast cancer. With representation from Breast Imaging, Internal Medicine, Women's Health, Family Medicine, and Medical/Surgical Oncology, the [facility] has carefully reviewed the data and reached the following consensus: 1) All women should engage in shared decision-making with their providers to decide when to start and how often to screen; 2) All women should have the opportunity to start screening mammography at age 40; 3) For women ages 45-55, we recommend annual screening mammograms; 4) For women ages 55 and over, we support both the transition from an annual to a biennial interval if this aligns more with patient's values and preferences, or continuation with annual screening; 5) All women should discuss with their providers when to stop screening mammograms. AMENDMENT: 09/22/2021 Lucho Mckenzie M.D. Previous mammogram dated 03/31/2019 is now available for comparison. There has been no significant interval change in appearance of either breast. Routine annual screening is recommended. Amended BI-RADS: 1 Negative letter sent: Normal - Films Compared Buffer Copper: Ashley Transcribe Date/Time: Sep 17 2021 10:43A Dictated by : LUCHO MCKENZIE MD This examination was interpreted and the report reviewed and electronically signed by: LUCHO MCKENZIE MD on Sep 17 2021 11:17AM EST This document has been addended by: LUCHO MCKENZIE MD on Sep 22 2021 9:12AM EST [id number] CN [facility] 08-04-2021 CNPN Telephone (CORPMN) INESSA HURD ([id number]) 1980 [facility] Date Time Provider Department 08/04/21 NIXON SHAIKH During your visit today, we recorded the following information about you: Nixon Shaikh RN 08/04/2021 9:37 PM Signed Exposure to COVID patient on 08/03/2021 CG masked/no eye wear, patient no mask. CG with patient for more than 15 min and less than [address] No s/s, will call back, if needed. Allergies As of Date: 08/04/2021 Noted Allergy Reaction AUGMENTIN (AMOXICILLIN-POT CLAVUL*06/11/2016 14 - Other: See Comments Comments: Throat swelling CLINDAMYCIN 08/16/2012 8 - GI Upset Comments: extreme KETEK (TELITHROMYCIN) 08/16/2012 4 - Hives MACROBID (NITROFURANTOIN MONOHYD/*06/11/2016 8 - GI Upset Comments: Flu like symptoms VICODIN (HYDROCODONE-ACETAMI NOPHE*08/16/2012 14 - Other: See Comments Comments: Causes weird thoughts Date Reviewed: 10/31/2019 Reviewed by: Chantal Rick Ma - Fully Assessed Reason for Visit: [facility] COVID Outreach [[id number]] Prescriptions as of 08/04/2021 - Ibuprofen (MOTRIN IB) 200 mg cap Take by mouth. - Cetirizine (ZYRTEC) 10 mg cap Take 5 mg by mouth once daily. - ibuprofen (MOTRIN) 600 mg tablet Take 1 tablet by mouth every 6 hours as needed. - sucralfate (CARAFATE) 1 gram tablet Take 1 g by mouth four times daily. - PNV COMBO#47/IRON/FA #1/DHA (PNV-DHA ORAL) Take by mouth. - Cholecalciferol, Vitamin D3, (VITAMIN D) 1,000 unit Tab Take 1,000 Units by mouth once daily. - levothyroxine (SYNTHROID) 75 mcg tablet Take 75 mcg by mouth daily before breakfast. Problem List As Of Date 08/04/2021 Noted Resolved Active labor [[id number]] 08/17/2012 06/19/2016 GBS (group B Streptococcus carrier), +RV cultur*08/17/2012 06/19/2016 False labor after 37 weeks of gestation without*06/12/2016 06/19/2016 Normal labor [O80, Z37.9] 06/17/2016 06/19/2016 Encounter Status:Closed by NIXON SHAIKH on 08/04/21 Normal [facility] Suzanne 04-14-2021 [facility] Tele[facility] (CORPMN) INESSA HURD ([id number]) 1980 F [facility] Date Time Provider Department 04/14/21 RAÚL PHILLIPS During your visit today, we recorded the following information about you: Rúal Phillips PA-C 04/14/2021 3:58 PM Signed My chart message and email sent to Leadership notified Raúl Phillips PA-C Allergies As of Date: 04/14/2021 Noted Allergy Reaction AUGMENTIN (AMOXICILLIN-POT CLAVUL*06/11/2016 14 - Other: See Comments Comments: Throat swelling CLINDAMYCIN 08/16/2012 8 - GI Upset Comments: extreme KETEK (TELITHROMYCIN) 08/16/2012 4 - Hives MACROBID (NITROFURANTOIN MONOHYD/*06/11/2016 8 - GI Upset Comments: Flu like symptoms VICODIN (HYDROCODONE-ACETAMI NOPHE*08/16/2012 14 - Other: See Comments Comments: Causes weird thoughts Date Reviewed: 10/31/2019 Reviewed by: Chantal Rick Ma - Fully Assessed [id number] Prescriptions as of 04/14/2021 - Ibuprofen (MOTRIN IB) 200 mg cap Take by mouth. - Cetirizine (ZYRTEC) 10 mg cap Take 5 mg by mouth once daily. - ibuprofen (MOTRIN) 600 mg tablet Take 1 tablet by mouth every 6 hours as needed. - sucralfate (CARAFATE) 1 gram tablet Take 1 g by mouth four times daily. - PNV COMBO#47/IRON/FA #1/DHA (PNV-DHA ORAL) Take by mouth. - Cholecalciferol, Vitamin D3, (VITAMIN D) 1,000 unit Tab Take 1,000 Units by mouth once daily. - levothyroxine (SYNTHROID) 75 mcg tablet Take 75 mcg by mouth daily before breakfast. Problem List As Of Date 04/14/2021 Noted Resolved Active labor [HRG8338] 08/17/2012 06/19/2016 GBS (group B Streptococcus carrier), +RV cultur*08/17/2012 06/19/2016 False labor after 37 weeks of gestation without*06/12/2016 06/19/2016 Normal labor [O80, Z37.9] 06/17/2016 06/19/2016 Encounter Status:Closed by RAÚL PHILLIPS on 04/14/21 Normal [facility] CNPMisty 04-09-2021 CNPN Telephone (CORPMN) INESSA HURD ([id number]) 1980 [facility] Date Time Provider Department 04/09/21 NETTA WILLIAM During your visit today, we recorded the following information about you: Rin Mireles RN 04/09/2021 2:15 PM Signed CG called [facility] hotline regarding RTW, criteria met. Cartographic Aide notifed Allergies As of Date: 04/09/2021 Noted Allergy Reaction AUGMENTIN (AMOXICILLIN-POT CLAVUL*06/11/2016 14 - Other: See Comments Comments: Throat swelling CLINDAMYCIN 08/16/2012 8 - GI Upset Comments: extreme KETEK (TELITHROMYCIN) 08/16/2012 4 - Hives MACROBID (NITROFURANTOIN MONOHYD/*06/11/2016 8 - GI Upset Comments: Flu like symptoms VICODIN (HYDROCODONE-ACETAMI NOPHE*08/16/2012 14 - Other: See Comments Comments: Causes weird thoughts Date Reviewed: 10/31/2019 Reviewed by: Chantal Rick Ma - Fully Assessed [facility] Visit[facility] [[id number]] Prescriptions as of 04/09/2021 - Ibuprofen (MOTRIN IB) 200 mg cap Take by mouth. - Cetirizine (ZYRTEC) 10 mg cap Take 5 mg by mouth once daily. - ibuprofen (MOTRIN) 600 mg tablet Take 1 tablet by mouth every 6 hours as needed. - sucralfate (CARAFATE) 1 gram tablet Take 1 g by mouth four times daily. - PNV COMBO#47/IRON/FA #1/DHA (PNV-DHA ORAL) Take by mouth. - Cholecalciferol, Vitamin D3, (VITAMIN D) 1,000 unit Tab Take 1,000 Units by mouth once daily. - levothyroxine (SYNTHROID) 75 mcg tablet Take 75 mcg by mouth daily before breakfast. Problem List As Of Date 04/09/2021 Noted Resolved Active labor [MHX1162] 08/17/2012 06/19/2016 GBS (group B Streptococcus carrier), +RV cultur*08/17/2012 06/19/2016 False labor after 37 weeks of gestation without*06/12/2016 06/19/2016 Normal labor [O80, Z37.9] 06/17/2016 06/19/2016 Encounter Status:Closed by RIN MIRELES on 04/09/21 Normal [facility] CNPNon 04-04-2021 CNPN Telephone (CORPMN) INESSA HURD ([id number]) 1980 [facility] Date Time Provider Department 04/04/21 CANDIDA BARAHONA CORPMN During your visit today, we recorded the following information about you: Allergies As of Date: 04/04/2021 Noted Allergy Reaction AUGMENTIN (AMOXICILLIN-POT CLAVUL*06/11/2016 14 - Other: See Comments Comments: Throat swelling CLINDAMYCIN 08/16/2012 8 - GI Upset Comments: extreme KETEK (TELITHROMYCIN) 08/16/2012 4 - Hives MACROBID (NITROFURANTOIN MONOHYD/*06/11/2016 8 - GI Upset Comments: Flu like symptoms VICODIN (HYDROCODONE-ACETAMI NOPHE*08/16/2012 14 - Other: See Comments Comments: Causes weird thoughts Date Reviewed: 10/31/2019 Reviewed by: Chantal Rick Ma - Fully Assessed [facility] Visit[facility] [[id number]] Prescriptions as of 04/04/2021 - Ibuprofen (MOTRIN IB) 200 mg cap Take by mouth. - Cetirizine (ZYRTEC) 10 mg cap Take 5 mg by mouth once daily. - ibuprofen (MOTRIN) 600 mg tablet Take 1 tablet by mouth every 6 hours as needed. - sucralfate (CARAFATE) 1 gram tablet Take 1 g by mouth four times daily. - PNV COMBO#47/IRON/FA #1/DHA (PNV-DHA ORAL) Take by mouth. - Cholecalciferol, Vitamin D3, (VITAMIN D) 1,000 unit Tab Take 1,000 Units by mouth once daily. - levothyroxine (SYNTHROID) 75 mcg tablet Take 75 mcg by mouth daily before breakfast. Problem List As Of Date 04/04/2021 Noted Resolved Active labor [[id number]] 08/17/2012 06/19/2016 GBS (group B Streptococcus carrier), +RV cultur*08/17/2012 06/19/2016 False labor after 37 weeks of gestation without*06/12/2016 06/19/2016 Normal labor [O80, Z37.9] 06/17/2016 06/19/2016 Encounter Status:Closed by CANDIDA BARAHONA on 04/04/21 Normal [facility] Suzanne 04-03-2021 CNPN Telephone (CORPMN) INESSA HURD ([id number]) 1980 [facility] Date Time Provider Department 04/03/21 CANDIDA BARAHONA During your visit today, we recorded the following information about you: Candida Barahona PA-C 04/03/2021 11:04 AM Signed Symptomatic CG Covid Screening Patient Name: Inessa Hurd Primary Care Physician: Yaquelin Anderson MD, MD Service Date: 04/03/2021 Service Time: 10:58 AM Symptomatic CG Screening Patient is a [employer] employee : Yes Employee ID : [id number] 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 Exposure to COVID-19 Virus : Yes, Recent Travel: No Prior COVID Infection: No Comorbidities: No [] Obesity [] DM [] Asthma COPD [] [] Other: Date of onset of symptoms: 04/02/21 Symptoms described as: mild to moderate Symptoms include: Fever: Yes Fatigue: Yes Headache Yes Myalgias: Yes Rhinorrhea: Yes Sore throat: Yes Loss of taste or smell: No Cough: Yes SOB/BOWMAN:No Nausea or vomiting nausea Diarrhea: Yes Plan Approved for COVID-19 testing: Yes Instructed to not to go at work, self quarantine at home and wear a mask until test results come back . Testing was scheduled during the encounter. The telephone encounter and results have been routed the caregiver's PCP if available in basket. Occupational health will follow-up after the test is resulted with additional instructions and return to work information. The caregiver verbalized understanding of above conversation and did not have any questions or concerns at the end of our conversation. Additional information can be found on the [facility] and [facility] web sites: https://www.cdc.gov/ coronavirus/2019-nCo V/index.html [email or web address]/[email or web address] Signature: Candida Barahona PA-C Patient Name: Inessa Gates Vickey Date: 04/03/2021 Time: 10:58 AM Pager/Contact: [phone] Allergies As of Date: 04/03/2021 Noted Allergy Reaction AUGMENTIN (AMOXICILLIN-POT CLAVUL*06/11/2016 14 - Other: See Comments Comments: Throat swelling CLINDAMYCIN 08/16/2012 8 - GI Upset Comments: extreme KETEK (TELITHROMYCIN) 08/16/2012 4 - Hives MACROBID (NITROFURANTOIN MONOHYD/*06/11/2016 8 - GI Upset Comments: Flu like symptoms VICODIN (HYDROCODONE-ACETAMI NOPHE*08/16/2012 14 - Other: See Comments Comments: Causes weird thoughts Date Reviewed: 10/31/2019 Reviewed by: Chantal Rick Ma - Fully Assessed Reason for Visit: Covid-19 Hotline [2368] Primary Visit Diagnosis:Suspected COVID-19 virus infection [Z20.822] Order(s):SELF CHECK COVID [SQHCCOVD] Order #: [id number] Prescriptions as of 04/03/2021 - Ibuprofen (MOTRIN IB) 200 mg cap Take by mouth. - Cetirizine (ZYRTEC) 10 mg cap Take 5 mg by mouth once daily. - ibuprofen (MOTRIN) 600 mg tablet Take 1 tablet by mouth every 6 hours as needed. - sucralfate (CARAFATE) 1 gram tablet Take 1 g by mouth four times daily. - PNV COMBO#47/IRON/FA #1/DHA (PNV-DHA ORAL) Take by mouth. - Cholecalciferol, Vitamin D3, (VITAMIN D) 1,000 unit Tab Take 1,000 Units by mouth once daily. - levothyroxine (SYNTHROID) 75 mcg tablet Take 75 mcg by mouth daily before breakfast. Problem List As Of Date 04/03/2021 Noted Resolved Active labor [CLR4938] 08/17/2012 06/19/2016 GBS (group B Streptococcus carrier), +RV cultur*08/17/2012 06/19/2016 False labor after 37 weeks of gestation without*06/12/2016 06/19/2016 Normal labor [O80, Z37.9] 06/17/2016 06/19/2016 Encounter Status:Closed by CANDIDA BARAHONA on 04/03/21 Normal [facility] CNPN Telephone (CORPMN) INESSA HURD ([id number]) 1980 [facility] Date Time Provider Department 04/03/21 NETTA WILLIAM CORPMN During your visit today, we recorded the following information about you: Mabel Chun 04/03/2021 10:41 AM Signed CG called the [facility] Hotline to report symptoms of Covid-19. She has a cough, sore throat, headache, stomach discomfort, nausea. Vahid FIELDS MD. Allergies As of Date: 04/03/2021 Noted Allergy Reaction AUGMENTIN (AMOXICILLIN-POT CLAVUL*06/11/2016 14 - Other: See Comments Comments: Throat swelling CLINDAMYCIN 08/16/2012 8 - GI Upset Comments: extreme KETEK (TELITHROMYCIN) 08/16/2012 4 - Hives MACROBID (NITROFURANTOIN MONOHYD/*06/11/2016 8 - GI Upset Comments: Flu like symptoms VICODIN (HYDROCODONE-ACETAMI NOPHE*08/16/2012 14 - Other: See Comments Comments: Causes weird thoughts Date Reviewed: 10/31/2019 Reviewed by: Chantal Rick Ma - Fully Assessed Reason for Visit: [facility] COVID Outreach [3886] Prescriptions as of 04/03/2021 - Ibuprofen (MOTRIN IB) 200 mg cap Take by mouth. - Cetirizine (ZYRTEC) 10 mg cap Take 5 mg by mouth once daily. - ibuprofen (MOTRIN) 600 mg tablet Take 1 tablet by mouth every 6 hours as needed. - sucralfate (CARAFATE) 1 gram tablet Take 1 g by mouth four times daily. - PNV COMBO#47/IRON/FA #1/DHA (PNV-DHA ORAL) Take by mouth. - Cholecalciferol, Vitamin D3, (VITAMIN D) 1,000 unit Tab Take 1,000 Units by mouth once daily. - levothyroxine (SYNTHROID) 75 mcg tablet Take 75 mcg by mouth daily before breakfast. Problem List As Of Date 04/03/2021 Noted Resolved Active labor [MUM4722] 08/17/2012 06/19/2016 GBS (group B Streptococcus carrier), +RV cultur*08/17/2012 06/19/2016 False labor after 37 weeks of gestation without*06/12/2016 06/19/2016 Normal labor [O80, Z37.9] 06/17/2016 06/19/2016 Encounter Status:Closed by MABEL CHUN on 04/03/21 Normal [facility] Self Check COVIDon 1 SARS-CoV-2 (COVID-19) RNA MIN+probe Ql (Unsp spec) UPPER RESPIRATORY TRACT SWAB Normal [facility] Comment on above: Performed By: #### H CCOVD ####[facility] [address] [place], [place] [phone] SARS-CoV-2 (COVID-19) RNA MIN+probe Ql (Unsp spec) Positive for COVID19 (SARS CoV2) by RT-PCR or equivalent method. Critically abnormal Negative for COVID19 (SARS CoV2) by RT-PCR or equivalent method. [facility] Comment on above: Result Comment: This test was developed and its performance characteristics determined by [facility]'s [facility]. This test has been authorized by FDA under an Emergency Use Authorization (EUA). This test has been validated in accordance with the FDA's Guidance Document Policy for Diagnostics Testing in Laboratories Certified to Perform High Complexity Testing under CLIA prior to Emergency use Authorization for Coronavirus Disease 2019 during the Public Health Emergency issued on June 03, 2019. Test performed by [facility], [facility], [address], [place] [address]. Performed By: #### H CCOVD ####[facility] [address] [place], [place] [phone] [facility] 12-19-2020 [facility] Telephone (CORPMN) INESSA HURD ([id number]) 1980 [facility] Date Time Provider Department 12/19/20 NETTA WILLIAM CORPMN During your visit today, we recorded the following information about you: Allergies As of Date: 12/19/2020 Noted Allergy Reaction AUGMENTIN (AMOXICILLIN-POT CLAVUL*06/11/2016 14 - Other: See Comments Comments: Throat swelling CLINDAMYCIN 08/16/2012 8 - GI Upset Comments: extreme KETEK (TELITHROMYCIN) 08/16/2012 4 - Hives MACROBID (NITROFURANTOIN MONOHYD/*06/11/2016 8 - GI Upset Comments: Flu like symptoms VICODIN (HYDROCODONE-ACETAMI NOPHE*08/16/2012 14 - Other: See Comments Comments: Causes weird thoughts Date Reviewed: 10/31/2019 Reviewed by: Chantal Rick Ma - Fully Assessed Reason for Visit: [facility] COVID Outreach [3886] Prescriptions as of 12/19/2020 - Ibuprofen (MOTRIN IB) 200 mg cap Take by mouth. - Cetirizine (ZYRTEC) 10 mg cap Take 5 mg by mouth once daily. - ibuprofen (MOTRIN) 600 mg tablet Take 1 tablet by mouth every 6 hours as needed. - sucralfate (CARAFATE) 1 gram tablet Take 1 g by mouth four times daily. - PNV COMBO#47/IRON/FA #1/DHA (PNV-DHA ORAL) Take by mouth. - Cholecalciferol, Vitamin D3, (VITAMIN D) 1,000 unit Tab Take 1,000 Units by mouth once daily. - levothyroxine (SYNTHROID) 75 mcg tablet Take 75 mcg by mouth daily before breakfast. Problem List As Of Date 12/19/2020 Noted Resolved Active labor [AUU4795] 08/17/2012 06/19/2016 GBS (group B Streptococcus carrier), +RV cultur*08/17/2012 06/19/2016 False labor after 37 weeks of gestation without*06/12/2016 06/19/2016 Normal labor [O80, Z37.9] 06/17/2016 06/19/2016 Encounter Status:Closed by ANANDA MILLER RN on 12/19/20 Normal [facility] 12-18-2020 [facility] Telephone (PEDRO LUIS) INESSA HURD ([id number]) 1980 [facility] Date Time Provider Department 12/18/20 LOLY WATERMAN During your visit today, we recorded the following information about you: Loly Waterman APRN.PLASTERER TENDER 12/18/2020 9:28 AM Signed Spoke with patient - meets criteria for Covid-19 testing. Symptoms: Cough--dry/productiv e, PND. Denies fever. Symptoms started 12/17 Positive contact ?: no Covid pass +/-?: AT HOME Covid 19 test ordered; patient instructed to schedule test via [employer] [facility]. 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 NOT VACCINATED. No recent travel. No high risk factors. Works as SPEECH PATHOLOGIST. Recommended to call back if onset of any symptoms or worsening of symptoms. Recommended caregiver to check my chart message for the link to self- schedule the covid test. Caregiver will continue using face mask, hand hygiene and social distancing as we discussed. Caregiver's PCP (if available) has been CC'd to receive test results. The employee/patient did not have any questions or concerns at the end of our conversation. Loly Waterman APRN.[facility] Occupational Health Allergies As of Date: 12/18/2020 Noted Allergy Reaction AUGMENTIN (AMOXICILLIN-POT CLAVUL*06/11/2016 14 - Other: See Comments Comments: Throat swelling CLINDAMYCIN 08/16/2012 8 - GI Upset Comments: extreme KETEK (TELITHROMYCIN) 08/16/2012 4 - Hives MACROBID (NITROFURANTOIN MONOHYD/*06/11/2016 8 - GI Upset Comments: Flu like symptoms VICODIN (HYDROCODONE-ACETAMI NOPHE*08/16/2012 14 - Other: See Comments Comments: Causes weird thoughts Date Reviewed: 10/31/2019 Reviewed by: Chantal Rick Ma - Fully Assessed Reason for Visit: Covid-19 Hotline [9786] Primary Visit Diagnosis:Suspected COVID-19 virus infection [Z20.822] Order(s):CAREGIVER COVID19 [SQCGCOVD] Order #: [id number] FUTURE Prescriptions as of 12/18/2020 - Ibuprofen (MOTRIN IB) 200 mg cap Take by mouth. - Cetirizine (ZYRTEC) 10 mg cap Take 5 mg by mouth once daily. - ibuprofen (MOTRIN) 600 mg tablet Take 1 tablet by mouth every 6 hours as needed. - sucralfate (CARAFATE) 1 gram tablet Take 1 g by mouth four times daily. - PNV COMBO#47/IRON/FA #1/DHA (PNV-DHA ORAL) Take by mouth. - Cholecalciferol, Vitamin D3, (VITAMIN D) 1,000 unit Tab Take 1,000 Units by mouth once daily. - levothyroxine (SYNTHROID) 75 mcg tablet Take 75 mcg by mouth daily before breakfast. Problem List As Of Date 12/18/2020 Noted Resolved Active labor [LHU6435] 08/17/2012 06/19/2016 GBS (group B Streptococcus carrier), +RV cultur*08/17/2012 06/19/2016 False labor after 37 weeks of gestation without*06/12/2016 06/19/2016 Normal labor [O80, Z37.9] 06/17/2016 06/19/2016 Encounter Status:Closed by LOLY WATERMAN on 12/18/20 Normal [facility] Caregiver [id number] 12-19-19 SARS-CoV-2 (COVID-19) RNA MIN+probe Ql (Unsp spec) UPPER RESPIRATORY TRACT SWAB Normal [facility] Comment on above: Performed By: #### C GCOVD ####[id number] [place], [place] [phone] SARS-CoV-2 (COVID-19) RNA MIN+probe Ql (Unsp spec) Negative for COVID19 (SARS CoV2) by RT-PCR or equivalent method. Normal Negative for COVID19 (SARS CoV2) by RT-PCR or equivalent method. [facility] Comment on above: Result Comment: This test was developed and its performance characteristics determined by [facility]'s [facility] [place]. This test has been authorized by FDA under an Emergency Use Authorization (EUA). This test has been validated in accordance with the FDA's Guidance Document Policy for Diagnostics Testing in Laboratories Certified to Perform High Complexity Testing under CLIA prior to Emergency use Authorization for Coronavirus Disease 2019 during the Public Health Emergency issued on June 03, 2019. Test performed by [facility], [facility] [place], [address], [place] [address]. Performed By: #### C GCOVD ####[facility] [address] [place], [place] [phone] MG Breast Tomosynthesis Scr Blon 03-31-2019 MG Breast Tomosynthesis Scr Bl Patient Name: INESSA HURD Mammography Exam Date/Time 03/31/2019 14:50:59 EST Exam MG Breast Tomosynthesis BI Scr Ordering Physician MD IVERSON KRISTIN N. Accession Number [id number] CPT4 Codes 40660 (MG Breast Tomosynthesis Scr Bl), 91121 (MG MAMMO 2D SCREENING) Reason For Exam Screening Report TIME SINCE LAST MAMMOGRAM: Baseline mammogram. REASON FOR EXAM: screening, asymptomatic. PROCEDURE: MG BREAST TOMOSYNTHESIS BL SCR: MARCH 31, 2019 - 2D/3D Procedure 3D Bilateral CC and MLO view(s) were taken. 2D Bilateral CC and MLO view(s) were taken. No prior studies available for comparison. TISSUE DENSITY: The breast tissue is heterogeneously dense, which could obscure underlying abnormalities. FINDINGS: No suspicious masses, architectural distortions or suspiciously clustered microcalcifications are identified. There is no evidence of skin thickening or nipple retraction. This is the patient's first mammogram. Markings on images: BB's = Nipples; skin lesions Open bill moore's slough = Palpable Line = Scar 2D digital mammography and tomosynthesis imaging were performed and reviewed with CAD. ASSESSMENT: Category 1 Negative No mammographic evidence of malignancy. RECOMMENDATION: Routine screening mammogram of both breasts in 1 year. Per the cancer risk assessment below, this patient has an elevated lifetime risk of breast malignancy. Report Dictated on Cancer Risk Assessment: This risk assessment is based on patient provided information collected in a risk survey taken at the time of this examination. Lifetime breast cancer risk: 23% - If greater than or equal to 20%, consider annual mammogram and annual screening Breast MRI or follow up in high risk clinic. Is the patient at elevated risk based on the HBOC criteria? No (Hereditary Breast and Ovarian Cancer) - If yes, consider genetic counseling and testing with high risk follow up. HNPCC mutation risk (Posada Syndrome): 1.6% - if greater than or equal to 5%, consider genetic counseling, testing and screening colonoscopy. Final Signed Date and Time: 03/31/2019 4:06 pm Signed by: MD CEDENO JENNIFER R Normal [facility] CT Abdomen/Pelvis w/ + w/o C lesli 09-20-2018 CT Abdomen/Pelvis w/ + w/o Contrast Patient Name: INESSA HURD CT Exam Date/Time 09/20/2018 16:59:[address] Abdomen/Pelvis w/ + w/o Contrast Ordering Physician MD BRAXTON, TONEI Cummins Accession Number [id number] CPT4 Codes 20141 (CT Abdomen/Pelvis w/ + w/o Contrast) Reason For Exam hydronephrosis Report CT ABDOMEN AND PELVIS WITHOUT AND WITH IV CONTRAST CLINICAL INDICATION: hydronephrosis TECHNIQUE: CT scan of the abdomen and pelvis without and with IV contrast. Multiplanar reformations. Contrast enhanced scan obtained on 09/19/2018, noncontrast scan obtained on 09/20/2018. COMPARISON: Ultrasound from 08/18/2018 FINDINGS: . Lung bases are clear. No free intraperitoneal gas seen. Liver shows no significant abnormality. Normal-appearing biliary tree status-post cholecystectomy. Spleen shows no significant abnormality. Adrenal glands show no significant abnormality. Pancreas shows no significant abnormality. Abdominal aorta is nonaneurysmal. No bowel obstruction. The appendix appears normal. No ureteral calculus seen on either side. Kidneys appear normal bilaterally. There is no hydronephrosis on either side. Extrarenal pelvis noted bilaterally. Ureters are nondilated bilaterally, but suboptimally opacified for evaluation otherwise. Tiny amount of free fluid in the pelvis, likely physiologic. IMPRESSION: 1. Negative. No hydronephrosis, normal variant extrarenal pelves bilaterally. Report Dictated on Final Dictated: 09/20/2018 9:13 pm Dictating Physician: MD WANG JOHN R Signed Date and Time: 09/20/2018 9:24 pm Signed by: MD WANG JOHN R Transcribed Date and Time: 09/20/2018 9:13 [facility] US Retroperitoneal Completeo n 08-18-2018 US Retroperitoneal Complete Patient Name: INESSA HURD Ultrasound Exam Date/Time 08/18/2018 08:30:00 EDT Exam US Retroperitoneal Complete Ordering Physician MD BRAXTON TONIE Maria G Accession Number [id number] CPT4 Codes 19632 () Reason For Exam recurring uti Report ULTRASOUND RENAL CLINICAL INFORMATION: Recurrent UTI Sonogram of the kidneys was performed. Comparison: None Findings: The renal cortical echogenicity is isoechoic to the liver. The right kidney measures 11.0 x 4.9 x 4.0 cm. The left kidney measures 12.5 x 4.7 x 5.0 cm. There are no mass lesions identified. No shadowing renal calculus is seen. There is mild pelvocaliectasis bilaterally, without jose hydronephrosis. There are no perinephric fluid collections. The screening evaluation of the urinary bladder is within normal limits. IMPRESSION: Mild bilateral pelvocaliectasis without evidence of jose hydronephrosis. Report Dictated on Workstation: [employer] Final Dictated: 08/18/2018 9:21 am Dictating Physician: MD HERZOG BRIAN Signed Date and Time: 08/18/2018 9:22 am Signed by: MD HERZOG BRIAN Transcribed Date and Time: 08/18/2018 9:21 Normal [facility] CR Spine Lumbosacral 2 or 3 Viewson 06-21-2018 CR Spine Lumbosacral 2 or 3 Views Patient Name: INESSA HURD Diagnostic Radiology Exam Date/Time 06/21/2018 15:30:47 EDT Exam CR Spine Lumbosacral 2 or 3 Views Ordering Physician PROMISE TORRES KRISTINA Accession Number [id number] CPT4 Codes 55705 () Reason For Exam low back pain Report CLINICAL INFORMATION: Chronic lower back pain. No known trauma. Recent urinary tract infection. LUMBOSACRAL SPINE, LIMITED: AP and lateral views demonstrate five lumbar type vertebral bodies. There is no evidence of acute fracture or compression deformity. The intervertebral discs are well maintained. There is no spondylolisthesis. The pedicles are grossly intact at all levels. IMPRESSION: No significant radiographic abnormality. Report Dictated on Workstation: [employer] Final Dictated: 06/21/2018 4:12 pm Dictating Physician: MD RAYMOND HARLAN Signed Date and Time: 06/21/2018 4:13 pm Signed by: MD RAYMOND HARLAN Transcribed Date and Time: 06/21/2018 4:12 Normal [facility] US Pelvis Completeon 019 US Pelvis Complete Patient Name: INESSA HURD Ultrasound Exam Date/Time 06/21/2018 15:11:29 EDT Exam US Pelvis Complete Ordering Physician PROMISE TORRES KRISTINA Accession Number [id number] CPT4 Codes 19186 () Reason For Exam pelvic cramping, bloating Report Indication: Pelvic pain. Transabdominal ultrasound of the pelvis was performed. The uterus measures 9.8 x 6.7 x 4.5 cm. The endometrium measures approximately 8 mm in thickness. The right ovary measures 3.3 x 2.2 x 1.5 cm and the left ovary measures 2.6 x 2.4 x 1.1 cm. There are follicular changes of the ovaries. Blood flow is identified to the ovaries. There are no adnexal masses or significant free pelvic fluid. IMPRESSION: 1. Unremarkable transabdominal pelvic ultrasound. Report Dictated on Final Dictated: 06/21/2018 3:48 pm Dictating Physician: DO DRAPER ANTHONY Signed Date and Time: 06/21/2018 3:50 pm Signed by: DO DRAPER ANTHONY Transcribed Date and Time: 06/21/2018 3:48 [facility] Vital Signs Date Time Vital Sign Value Performing Clinician Kary harris 01-21-2023 15:35-0400 Body height 162.56 cm [facility] 01-21-2023 15:35-0400 Body mass index (BMI) [Ratio] 23 kg/m2 [facility] 01-21-2023 15:35-0400 Body temperature 97.9 [degF] [facility] 01-21-2023 15:35-0400 Body weight 60.78 kg [facility] 01-21-2023 15:35-0400 Diastolic blood pressure 60 mm[Hg] [facility] 01-21-2023 15:35-0400 Heart rate 77 /min [facility] 01-21-2023 15:35-0400 Respiratory rate 18 /min [facility] 01-21-2023 15:35-0400 SaO2% (BldA) [Mass fraction] 98 % [facility] 01-21-2023 15:35-0400 Systolic blood pressure 115 mm[Hg] [facility] 09-24-2021 15:18-0400 Body height 162.56 cm [facility] Work Phone: 09-24-2021 15:18-0400 Body mass index (BMI) [Ratio] 22.1 kg/m2 [facility] Work Phone: 09-24-2021 15:18-0400 Body temperature 97.2 [degF] [facility] Work Phone: 09-24-2021 15:18-0400 Body weight 58.51 kg [facility] Work Phone: 09-24-2021 15:18-0400 Diastolic blood pressure 60 mm[Hg] [facility] Work Phone: 09-24-2021 15:18-0400 Heart rate 81 /min [facility] Work Phone: 09-24-2021 15:18-0400 Respiratory rate 18 /min [facility] Work Phone: 09-24-2021 15:18-0400 SaO2% (BldA) [Mass fraction] 98 % [facility] Work Phone: 09-24-2021 15:18-0400 Systolic blood pressure 100 mm[Hg] [facility] Work Phone: 08-27-2021 16:01-0400 Body mass index (BMI) [Ratio] 21.6 kg/m2 [facility] Work Phone: 08-27-2021 16:01-0400 Body temperature 98.1 [degF] [facility] Work Phone: 08-27-2021 16:01-0400 Body weight 57.15 kg [facility] Work Phone: 08-27-2021 16:01-0400 Diastolic blood pressure 50 mm[Hg] [facility] Work Phone: 08-27-2021 16:01-0400 Heart rate 80 /min [facility] Work Phone: 08-27-2021 16:01-0400 Respiratory rate 18 /min [facility] Work Phone: 08-27-2021 16:01-0400 SaO2% (BldA) [Mass fraction] 97 % [facility] Work Phone: 08-27-2021 16:01-0400 Systolic blood pressure 110 mm[Hg] [facility] Work Phone: 06-09-2021 18:26-0500 Body mass index (BMI) [Ratio] 21.4 kg/m2 [facility] Work Phone: 06-09-2021 18:26-0500 Body temperature 97.2 [degF] [facility] Work Phone: 06-09-2021 18:26-0500 Body weight 56.69 kg [facility] Work Phone: 06-09-2021 18:26-0500 Diastolic blood pressure 60 mm[Hg] [facility] Work Phone: 06-09-2021 18:26-0500 Heart rate 72 /min [facility] Work Phone: 06-09-2021 18:26-0500 Respiratory rate 18 /min [facility] Work Phone: 06-09-2021 18:26-0500 SaO2% (BldA) [Mass fraction] 99 % [facility] Work Phone: 06-09-2021 18:26-0500 Systolic blood pressure 110 mm[Hg] [facility] Work Phone: Encounters Encounter Date Encounter Type Care Provider Facility Start: 08-02-2024 ambulatory MOHINDER IVERSON Facilit y:[facility] Start: 02-19-2024 End: 02-19-2024 ambulatory Cecy Hall DE IONIZER OPERATOR Facility:[facility] Start: 02-18-2024 End: 02-18-2024 ambulatory Cecy Hall DE IONIZER OPERATOR Facility:[facility] Start: 01-21-2023 End: 01-21-2023 ambulatory [facility] Work Phone: Start: 01-21-2023 End: 01-21-2023 Patient encounter procedure [facility] Work Phone: Start: 01-18-2023 End: 01-18-2023 ambulatory [facility] Work Phone: Start: 01-18-2023 End: 01-18-2023 Patient encounter procedure [facility] Work Phone: Start: 09-24-2021 End: 09-24-2021 Patient encounter procedure [facility] Start: 09-24-2021 Patient encounter status [facility] Start: 09-22-2021 Documentation procedure Mammog hussain Coordinator [facility] Start: 09-22-2021 Letter encounter Mammography Coordinator [facility] NOT LIST[facility] Start: 09-17-2021 Documentation procedure Mammog hussain Coordinator [facility] Start: 09-17-2021 Letter encounter Mammography Coordinator [place] NOT LIST[facility] Start: 08-04-2021 Telephone encounter Nixon Shaikh RN [facility] Comment on above: [facility] COVID Outr each Start: 11-14-2019 Patient encounter status [facility] Start: 03-31-2019 End: 03-31-2019 Subsequent hospital visit by physician Mohinder Iverson MD [facility] Comment on above: Screening for breast cancer Start: 07-05-2017 Ambulatory JING HOLLAND [facility] Procedures Date Procedure Procedure Detail Performing Clinician Start: 09-17-2021 Mammography Mammograph y Coordinator Plan of Treatment Date Care Activity Detail Author Start: 01-19-2024 DTaP/Tdap/Td vaccine (2 - Td) DTaP/Tdap/Td vaccine (2 - Td) [facility] Work Phone: Start: 09-17-2022 Mammography MAMMOGRAM [facility] Start: 01-05-2022 Pneumococcal 0-64 ye ars Vaccine (1 of 1 - PPSV23) Pneumococcal 0-64 years Vaccine (1 of 1 - PPSV23) [facility] Work Phone: Comment on above: Postponed from 04/27 (Not Indicated) Start: 09-24-2021 Microscopic observat ion [Identifier] in Cervix by Cyto stain.thin prep [facility] Work Phone: Start: 11-12-2020 Cervical cancer screen Cervical canc er screen [facility] Work Phone: Start: 2020 Mammography MAMMOGRAM [facility] Start: 12-12-2019 End: 12-12-2019 Patient encounter procedure 12/12/2019 Office Visit Family Medicine Mohinder Iverson MD [address] [place] [address], [address] [place] [address] [phone] [facility] Start: 04-23-2019 TSH testing TSH testing [facility] Work Phone: Start: 12-04-2018 Influenza vaccination Flu vaccine (# 1) [facility] Work Phone: Start: 08-05-2016 HPV TESTING HPV TESTING [facility] Start: 08-05-2016 PAP TESTING PAP TESTING [facility] Start: 1999 Urine microalbumin profile DTAP,TDAP,TD (1 - Tdap) [facility] Start: 1998 HEPATITIS C SCREENING HEPATITIS C SC REENING [facility] Start: 1992 Adult depression screening assessment DEPRESSION SCREENING [facility] Start: 1985 COVID-19 VACCINE (#1) COVID-19 VACCI NE (#1) [facility] Start: 1985 COVID-19 VACCINE (1) COVID-19 VACCIN E (1) [facility] Microscopic observat ion [Identifier] in Cervix by Cyto stain.thin prep [facility] Work Phone: Microscopic observat ion [Identifier] in Cervix by Cyto stain.thin prep [facility] Path report.final Dx Spec [facility] Work Phone: Path report.final Dx Spec [facility] End: 03-31-2019 Screening digital breast tomosynthesis bi Yanique Chuck Digital Screen Bilateral Imaging Routine Once for 1 Occurrences starting 03/31/2019 until 03/31/2019 [facility] Work Phone: Comment on above: Once for 1 Occurrenc es starting 03/31/2019 until 03/31/2019 Screening digital br east tomosynthesis bi Yanique Chuck Digital Screen Bilateral Imaging Routine 03/31/2019 2:36 PM EST [facility] Work Phone: Immunizations Immunization Date Immunization Notes Care Provider Fa cility 06-09-2021 diphtheria, tetanus toxoids and acellular pertussis vaccine [facility] 01-31-2021 influenza virus vaccine, unspecified formulation Nixon Shaikh RN [facility] 02-15-2018 Influenza, Quadv, 6 mo and older, IM, PF (Flulaval, Fluarix) Mohinder Iverson MD Work Phone: [facility] Work Phone: 01-18-2014 tetanus toxoid, redu yecenia diphtheria toxoid, and acellular pertussis vaccine, adsorbed Mohinder Iversno MD Work Phone: [facility] Work Phone: 01-04-2012 influenza virus vaccine, unspecified formulation Nixon Shaikh RN [facility] Payers Date Payer Category Payer Self-pay [id number] 2024 Unknown [id number] 2019 Unknown ROSANA ORTEGA WILDER [id number] 2019-Present [phone] [address] [place] [address] Indemnity [id number] 2017 Unknown [employer] [address] xxxxxxxxxxxx 2017-Present [phone] [address] [place] [address] xxxxxxxxxxxx [id number] 1980 Unknown [id number] Unknown [id number] Unknown [id number] Unknown [id number] Social History Date Type Detail Facility Start: 03-07-2014 End: 12-07-2018 Tobacco smoking status NHIS Never smoker [facility] Start: 12-07-2018 Alcohol intake Current drinke r of alcohol (finding) [employer] Work Phone: Start: 12-07-2018 History SDOH Financial 5 [facility] Work Phone: Start: 12-07-2018 History SDOH Food Worry 1 [employer] Work Phone: Start: 12-07-2018 History SDOH Transpo rt Med 2 [employer] Work Phone: Start: 09-13-2018 Alcohol Comment just occasiona l social drink [employer] Work Phone: Start: 1980 Sex Assigned At Not on file [facility] [employer] Work Phone: Start: 03-07-2014 Tobacco use and exposure Smokeless tobacco non-user [facility] Start: 10-31-2019 Alcohol intake Current non-dr engine wiper of alcohol (finding) [facility] Start: 09-07-2021 End: 09-17-2021 Exposure to SARS-CoV-2 (event) Not sure [facility] Start: 1980 Sex Assigned At Female [facility] Goals Date Patient Goal Desired Activity /State Comment on above: Maintain a healthy l ifestyle 12/07/18 Barriers: time constraints Plan for overcoming my barriers: continue being active Confidence: 08/12 Anticipated Goal Completion Date: 12/05/2019 Clinical Notes 06-17-2016 to 09-22-2021 Letter - Mammography Coordinator - 09/22/2021 9:12 AM EDTLetter - Mammography Coordinator - 09/17/2021 11:17 AM EDTTelephone Encounter - Nixon Shaikh RN - 08/04/2021 8:50 PM EDT Note Date & Type Note Facility 09-22-2021 Miscellaneous Notes [address] [address] September 22, 2021 PID: [id number] Inessa Hurd [address] [place] [address] Dear Ms. Hurd, Your prior imaging studies have arrived and been compared to your current study. We are pleased to inform you that the results of your recent breast imaging exam on 09/17/2021 are normal. Early detection of cancer is very important. We also understand recommendations regarding breast cancer screening are controversial. Please discuss with your primary care provider which strategy is best for you and whether a mammogram is right for you. Your imaging studies and report will be kept on file at [facility] as part of your permanent medical record and are available for your continuing care. Thank you for allowing us to help in meeting your health care needs. Sincerely, Dr. Mckenzie Interpreting Radiologist [facility] (Normal [employer] compared) documented in this encounter [facility] 09-17-2021 Note HNO ID: [id number] Author: RT Silvano(R) Service: ? Author Type: Technologist Type: Progress Notes Filed: 09/17/2021 11:09 AM Note Text: Radiology Service Progress Note PATIENT NAME: Inessa Hurd DATE OF SERVICE: September 17, 2021 TIME: 11:09 AM PATIENT IDENTITY VERIFICATION COMPLETED USING TWO (2) IDENTIFIERS: Name and Date of confirmed by patient verbally. FALL SCREENING: Has the patient had 2 falls in the last year or 1 fall with injury or currently using an Ambulatory Assistive Device (Walker, Cane, Wheelchair, Crutches, etc.)? No PATIENT GENDER DATA: Female. status: : No status: N/A PATIENT RELEVANT IMPLANT DATA REVIEWED: Not Applicable RADIOLOGY DEPARTMENT: Mammography PERIPHERAL IV DATA: Not applicable SIGNED BY: RT Silvano(R) September 17, 2021 11:09 AM [facility] 09-17-2021 Miscellaneous Notes [address] [address] September 17, 2021 PID: [id number] Inessa GatesPepe Hurd [address] [place] [address] Dear Ms. Hurd, Your breast imaging exam 09/17/2021 showed a possible finding that may require additional imaging studies for a complete evaluation. However, we recognize you have prior imaging studies at facilities other than [facility], and would like the opportunity to compare your recent imaging with those studies to evaluate for any change. At this time, we have requested your prior studies. If/when your prior studies arrive, a final report will be sent to your healthcare provider and/or you. In addition, you will receive a new result letter and or phone call If you need additional imaging. If we do not receive prior studies within 30 days of your exam, you will receive a reminder letter and or phone call to schedule your diagnostic imaging. Your imaging studies and reports are kept on file at [facility] as part of your permanent medical record, and are available for your continuing care. If you have any questions or concerns, please call [phone]. Thank you for choosing [facility] for your imaging needs. Sincerely, Dr. Mckenzie Interpreting Radiologist [facility] ([employer]) documented in this encounter [facility] 08-04-2021 Miscellaneous Notes Exposure to COVID patient on 08/03/2021 CG masked/no eye wear, patient no mask. CG with patient for more than 15 min and less than [address] Maksim Pemberton No s/s, will call back, if needed. documented in this encounter [facility] 12-18-2020 Note HNO ID: [id number] Author: Kesha Still Ma Service: ? Author Type: ? Type: Progress Notes Filed: 12/18/2020 10:43 AM Note Text: covid test [facility] 06-17-2016 History of Past i llness Narrative Problem Noted Date Resolved Date Normal labor 06/17/2016 06/19/2016 False labor after 37 weeks of gestation without delivery 06/12/2016 06/19/2016 Active labor 08/17/2012 06/19/2016 GBS (group B Streptococcus c arrier), +RV culture, currently 08/17/2012 06/19/2016 documented as of this encounter (statuses as of 08/05/2021) [facility] History of Past illness Narrative* Problem Noted Date Resolved Date Normal labor 06/17/2016 06/19/2016 False labor after 37 weeks of gestation without delivery 06/12/2016 06/19/2016 Active labor 08/17/2012 06/19/2016 GBS (group B Streptococcus c arrier), +RV culture, currently 08/17/2012 06/19/2016 documented as of this encounter (statuses as of 09/19/2021) [facility] History of Past illness Narrative* Problem Noted Date Resolved Date Normal labor 06/17/2016 06/19/2016 False labor after 37 weeks of gestation without delivery 06/12/2016 06/19/2016 Active labor 08/17/2012 06/19/2016 GBS (group B Streptococcus c arrier), +RV culture, currently 08/17/2012 06/19/2016 documented as of this encounter (statuses as of 09/24/2021) [facility] Breast screening, unspecified [facility] in this encounter [facility] Work Phone: Evaluation note* Diagnosis Onset Date Resolution Status Jaw pain, non-TMJ acute Otitis media, left acute Maxillary sinusitis acute Otitis media, left acute Encounter for gynecological examination with Papanicolaou smear of cervix acute [facility] Work Phone: Evaluation note* Diagnosis Onset Date Resolution Status Hypothyroidism acute Encounter for gynecological examination with Papanicolaou smear of cervix acute Left acute otitis media acut e [facility] Work Phone: Evaluation note* Diagnosis Onset Date Resolution Status Hypothyroidism acute Encounter for gynecological examination with Papanicolaou smear of cervix acute [facility] Work Phone: Summary Purpose Family History No Family History Records Found Relationship Condition Age at Onset Recorded Date/T florentino Not Specified Family history of ma lignant neoplasm of kidney Unknown Malignant neoplasm of prostate Unknown Diabetes mellitus Unknown Malignant neoplasm of urinary bladder Unk nown High blood cholesterol Unknown Malignant neoplasm of breast Unknown Hypertension Unknown Disorder of thyroid Unknown Advance Directives No Advanced Directives Records FoundDocuments on File Type Date Recorded Patient Customs Compliance Director Expl anation Advance Directives and Living Will Power of Director Of Consulting Services Chief Complaint and Reason for Visit Chief Complaint Ear complaints & jaw pain Sinus & Achy Annual wellness exam pap/labs drawn Reason for Visit Jaw pain, non-TMJ Otitis media, left Maxillary sinusitis Otitis media, left Encounter for gynecological examination with Papanicolaou smear of cervix Chief Complaint lab(TSH) Annual wellness PAP exam PE Reason for Visit Hypothyroidism Encounter for gynecological examination with Papanicolaou smear of cervix Left acute otitis media Chief Complaint lab(TSH) Annual wellness PAP exam PE Reason for Visit Hypothyroidism Encounter for gynecological examination with Papanicolaou smear of cervix Additional Source Comments INFORMATION SOURCE (unrecogn ized section and content) DATE CREATED AUTHOR 09/23/[address] [facility] DATE CREATED AUTHOR AUTHOR'S ORGANIZ ATION 04/04/2019 [facility] DATE CREATED AUTHOR AUTHOR'S ORGANIZ ATION 09/22/2021 [facility] DATE CREATED AUTHOR AUTHOR'S ORGANIZ ATION 09/24/2021 [facility] DATE CREATED AUTHOR AUTHOR[facility]S [facility] AT[facility] DATE CREATED AUTHOR AUTHOR'S ORGANMECHELLE ATION 08/03/2024 [facility] Source Comments (unrecognize d section and content) In the event this informatio n is protected by the Federal Confidentiality of Alcohol and Drug Abuse Patient Records regulations: The Federal rules restrict any use of the information to criminally investigate or prosecute any alcohol or drug abuse patient.[facility] the event this information is protected by the Federal Confidentiality of Alcohol and Drug Abuse Patient Records regulations: The Federal rules restrict any use of the information to criminally investigate or prosecute any alcohol or drug abuse patient.[facility] the event this information is protected by the Federal Confidentiality of Alcohol and Drug Abuse Patient Records regulations: The Federal rules restrict any use of the information to criminally investigate or prosecute any alcohol or drug abuse patient.[facility] Reason for Visit (unrecogniz ed section and content) Reason Onset Date Comments [facility] COVID Outreach 08/04/2021 Care Teams (unrecognized sec tion and content) Tilt Tray Driver Relationship Specialty Start Date End Date Yaquelin Anderson MD PCP - General 02/12/15 Tilt Tray Driver Relationship Specialty Start Date End Date Yaquelin Anderson MD PCP - General 02/12/15 Team Status: Active Member Role Status Dates Cecy Hall NP, DE IONIZER OPERATOR-C Family Provider Active Team Status: Inactive Member Role Status Dates Cecy Hall NP, DE IONIZER OPERATOR-C Attending Provider Active Team Status: Active Member Role Status Dates Cecy Hall NP, DE IONIZER OPERATOR-C Attending Provider Active Goals (unrecognized section and content) Goals may be documented in a n alternate sectionGoals may be documented in an alternate sectionGoals may be documented in an alternate section FOR RECORDS PERTAINING TO PATIENTS WHO ARE OR HAVE BEEN ENROLLED IN A CHEMICAL DEPENDENCY/SUBSTANCEABUSE PROGRAM, SOME INFORMATION MAY BE OMITTED. This clinical summary was aggregated from multiple sources. Caution should be exercised in using it in the provision of clinical care. This summary normalizes information from multiple sources, and as a consequence, information in this document may materially change the coding, format and clinical context of patient data. In addition, data may be omitted in some cases. CLINICAL DECISIONS SHOULD BE BASED ON THE PRIMARY CLINICAL RECORDS. [facility]. provides no warranty or guarantee of the accuracy or completeness of information in this document.
== END | disposition home or self-care (01) ==
PROVIDERS: PCP Nurse Practitioner; Referring Provider Nurse Practitioner; Visit Provider Nurse Practitioner
DX: E03.9 Hypothyroidism, unspecified (principal)
CPT/HCPCS: 84443